=== PATIENT | female | born 1980 | race Caucasian/White ===

== ENCOUNTER 2018-11-24 19:48 | Emergency (ER) | payer SELFPAY ==
[2018-11-24] MEDS ORDERED: Sodium Chloride 0.9% 10 ML Syringe FLUSH PRN (19:52)
[2018-11-24] MEDS ORDERED: Sodium Chloride 0.9% 1,000 ML IV ONE (19:52)
[2018-11-24] MEDS ORDERED: Sodium Chloride 0.9% 2.5 ML Syringe FLUSH PRN (19:52)
[2018-11-24] MEDS ORDERED: Ondansetron 4 MG/2 ML SDV IVPUSH ONE (19:52)
[2018-11-24 20:07] VITALS: BP 149/105
--- NOTE | 2018-11-24 20:13 | EDM.PDOC ---
ED HPI GENERAL MEDICAL PROBLEM - General Stated Complaint: SICK, FELL BACK AND HIT HEAD Time Seen by Provider: 11/24/18 19:49 Source of Information: Reports: Patient History Limitations: Reports: No Limitations - History of Present Illness INITIAL COMMENTS - FREE TEXT/NARRATIVE: HISTORY AND PHYSICAL: History of present illness: Patient is a 38-year-old female who presents to the emergency room after syncopal event. She states she has felt unwell for approximately 2 days with symptoms of cough, nausea, vomiting, diarrhea and general malaise. She states today she did have some dizziness and felt unbalanced on her feet. Prior to arrival she had a syncopal event and fell backwards hitting her head. She reports subjective fevers and chills. Denies any chest pain, shortness of breath , abdominal pain. She states her appetite has been decreased but is able to keep some fluids down. Currently denies any headache, change in vision, diaphoresis. Review of systems: As per history of present illness and below otherwise all systems reviewed and negative. Past medical history: As per history of present illness and as reviewed below otherwise noncontributory. Surgical history: As per history of present illness and as reviewed below otherwise noncontributory. Social history: See social history for further information Family history: As per history of present illness and as reviewed below otherwise noncontributory. Physical exam: General: Well-developed and well-nourished 38-year-old female. Alert and oriented. Nontoxic appearing and in no acute distress HEENT: Nontender with palpation, normocephalic, pupils equal and reactive bilaterally, negative for conjunctival pallor or scleral icterus, mucous membranes moist, TMs normal bilaterally, throat clear, neck supple, nontender, trachea midline. No drooling or trismus noted. No meningeal signs. No hot potato voice noted. Lungs: Clear to auscultation, breath sounds equal bilaterally, chest nontender. Heart: S1S2, regular rate and rhythm without overt murmur Abdomen: Soft, nondistended, nontender. Negative for masses or hepatosplenomegaly. Negative for costovertebral tenderness. Pelvis: Stable nontender. Genitourinary: Deferred. Rectal: Deferred. Skin: Intact, warm, dry. No lesions or rashes noted. Extremities: Moves all extremities per self without difficulty or deficits negative for cords or calf pain. Neurovascular unremarkable. Neuro: Awake, alert, oriented. Cranial nerves II through XII unremarkable. Cerebellum unremarkable. Motor and sensory unremarkable throughout. Exam nonfocal. Notes: After lab work had been drawn and EKG was completed the patient states that she would like to leave. He did not have a chance to perform the head CT or chest x- ray. She'll sign out AGAINST MEDICAL ADVICE. Vital signs are stable. She does have a ride to home. States she'll follow up with her primary care provider tomorrow. Diagnostics: CBC, CMP, orthostatic vital signs, troponin, EKG, head CT, one view chest Therapeutics: IV fluid, Zofran Prescription: None Impression: Syncope Eloped Plan: Eloped Definitive disposition and diagnosis as appropriate pending reevaluation and review of above. Duration: Day(s): head Pain Score (Numeric/FACES): 8 - Related Data Allergies Allergy/AdvReac Type Severity Reaction Status Date / Time No Known Allergies Allergy Verified 11/24/18 20:06 Home Meds: Home Meds Levothyroxine Sodium [Synthroid] 1 tab PO DAILY 08/26/18 [History] Losartan/Hydrochlorothiazide [Losartan-HCTZ 100-25 MG] 1 tab PO DAILY 08/26/18 [ History] Past Medical History - Past Health History Medical/Surgical History: Denies Medical/Surgical History Cardiovascular History: Reports: Hypertension Other Cardiovascular History: just started on BP meds today 03/23/15 Genitourinary History: Reports: None [employer]ER History: Reports: Dysfunctional Uterine Bleeding, Endometriosis Other YOU[employer] OFF[employer]ER History: hx elective AB Endocrine/Metabolic History: Reports: Hypothyroidism, Obesity/BMI 30+ Dermatologic History: Reports: Psoriasis - Past Surgical History Head Surgeries/Procedures: Reports: None Female Surgical History: Reports: Dilitation & Evacuation Other Female Surgeries/Procedures: hysteroscopy ED ROS GENERAL - Review of Systems Review Of Systems: ROS reveals no pertinent complaints other than HPI. - Physical Exam Exam: See Below (See dictation) Course - Vital Signs Last Recorded V/S: Last Vital Signs Temp 97 F 11/24/18 19:48 Pulse 81 11/24/18 19:48 Resp 18 11/24/18 19:48 BP 149/105 H 11/24/18 19:48 Pulse Ox 96 11/24/18 19:48 Orthostatic Blood Pressure [ 129/94 Standing] Orthostatic Blood Pressure [ 134/74 Sitting] Orthostatic Blood Pressure [ 118/76 Supine] - Orders/Labs/Meds Orders: Active Orders 24 hr Category Date Time Status EKG Documentation Completion [RC] STAT Care 11/24/18 19:52 Active Orthostatic Vital Signs [RC] ASDIRECTED Care 11/24/18 19:52 Active Chest 1V Frontal [CR] Stat Exams 11/24/18 19:52 Ordered Head wo Cont [CT] Stat Exams 11/24/18 19:52 Ordered COMPREHENSIVE METABOLIC PN,CMP [CHEM] Stat Lab 11/24/18 20:02 Received CULTURE STOOL + CAMPY+SHIGATOX [RM] Stat Lab 11/24/18 19:53 Ordered INFLUENZA A+B AG SCREEN [RM] Stat Lab 11/24/18 20:11 Received TROPONIN I [CHEM] Stat Lab 11/24/18 20:02 Received UA RFX ANI AND CULT IF INDIC [URIN] Stat Lab 11/24/18 20:15 Received Sodium Chloride 0.9% [Normal Saline] 1,000 ml Med 11/24/18 19:52 Active IV STAT Sodium Chloride 0.9% [Saline Flush] Med 11/24/18 19:52 Active 10 ml FLUSH ASDIRECTED PRN Sodium Chloride 0.9% [Saline Flush] Med 11/24/18 19:52 Active 2.5 ml FLUSH ASDIRECTED PRN Saline Lock Insert [OM.PC] Stat Oth 11/24/18 19:52 Ordered Medication Orders Sodium Chloride (Normal Saline) 1,000 mls @ 999 mls/hr IV STAT ONE Stop: 11/24/18 20:52 Last Admin: 11/24/18 20:09 Dose: 999 mls/hr Sodium Chloride (Saline Flush) 10 ml FLUSH ASDIRECTED PRN PRN Reason: Keep Vein Open Sodium Chloride (Saline Flush) 2.5 ml FLUSH ASDIRECTED PRN PRN Reason: Keep Vein Open Labs: Laboratory Tests 11/24/18 Range/Units 20:02 WBC 4.04 (4.0-11.0) K/uL RBC 4.11 L (4.30-5.90) M/uL Hgb 13.5 (12.0-16.0) g/dL Hct 39.5 (36.0-46.0) % MCV 96.1 (80.0-98.0) fL MCH 32.8 H (27.0-32.0) pg MCHC 34.2 (31.0-37.0) g/dL RDW Std Deviation 52.2 (28.0-62.0) fl RDW Coeff of Cookie 15 (11.0-15.0) % Plt Count 280 (150-400) K/uL MPV 9.40 (7.40-12.00) fL Neut % (Auto) 36.5 L (48.0-80.0) % Lymph % (Auto) 50.2 H (16.0-40.0) % [place] % (Auto) 11.4 (0.0-15.0) % Eos % (Auto) 1.2 (0.0-7.0) % Baso % (Auto) 0.7 (0.0-1.5) % Neut # (Auto) 1.5 (1.4-5.7) K/uL Lymph # (Auto) 2.0 (0.6-2.4) K/uL [place] # (Auto) 0.5 (0.0-0.8) K/uL Eos # (Auto) 0.1 (0.0-0.7) K/uL Baso # (Auto) 0.0 (0.0-0.1) K/uL Nucleated RBC % 0.0 /100WBC Nucleated RBCs # 0 K/uL Meds: Medications Generic Name Dose Route Start Last Admin Trade Name Freq PRN Reason Stop Dose Admin Sodium Chloride 1,000 mls @ 999 mls/hr 11/24/18 19:52 11/24/18 20:09 Normal Saline IV 11/24/18 20:52 999 mls/hr STAT ONE Administration Sodium Chloride 10 ml 11/24/18 19:52 Saline Flush FLUSH ASDIRECTED PRN Keep Vein Open Sodium Chloride 2.5 ml 11/24/18 19:52 Saline Flush FLUSH ASDIRECTED PRN Keep Vein Open Discontinued Medications Generic Name Dose Route Start Last Admin Trade Name Freq PRN Reason Stop Dose Admin Ondansetron HCl 4 mg 11/24/18 19:52 11/24/18 20:22 Zofran IVPUSH 11/24/18 19:53 4 mg ONETIME ONE Administration Departure - Departure Time of Disposition: 20:33 Disposition: Eloped 07 Clinical Impression: Eloped from emergency department Syncope Qualifiers: Syncope type: unspecified Qualified Code(s): R55 - Syncope and collapse - Discharge Information Referrals: PCP,None [Primary Care Provider] - - My Orders Last 24 Hours: My Active Orders 11/24/18 19:52 EKG Documentation Completion [RC] STAT Orthostatic Vital Signs [RC] ASDIRECTED Chest 1V Frontal [CR] Stat Head wo Cont [CT] Stat Sodium Chloride 0.9% [Normal Saline] 1,000 ml IV STAT Sodium Chloride 0.9% [Saline Flush] 10 ml FLUSH ASDIRECTED PRN Sodium Chloride 0.9% [Saline Flush] 2.5 ml FLUSH ASDIRECTED PRN Saline Lock Insert [OM.PC] Stat 11/24/18 19:53 CULTURE STOOL + CAMPY+SHIGATOX [RM] Stat 11/24/18 20:02 COMPREHENSIVE METABOLIC PN,CMP [CHEM] Stat TROPONIN I [CHEM] Stat 11/24/18 20:11 INFLUENZA A+B AG SCREEN [RM] Stat 11/24/18 20:15 UA RFX ANI AND CULT IF INDIC [URIN] Stat - Assessment/Plan Last 24 Hours: My Active Orders 11/24/18 19:52 EKG Documentation Completion [RC] STAT Orthostatic Vital Signs [RC] ASDIRECTED Chest 1V Frontal [CR] Stat Head wo Cont [CT] Stat Sodium Chloride 0.9% [Normal Saline] 1,000 ml IV STAT Sodium Chloride 0.9% [Saline Flush] 10 ml FLUSH ASDIRECTED PRN Sodium Chloride 0.9% [Saline Flush] 2.5 ml FLUSH ASDIRECTED PRN Saline Lock Insert [OM.PC] Stat 11/24/18 19:53 CULTURE STOOL + CAMPY+SHIGATOX [RM] Stat 11/24/18 20:02 COMPREHENSIVE METABOLIC PN,CMP [CHEM] Stat TROPONIN I [CHEM] Stat 11/24/18 20:11 INFLUENZA A+B AG SCREEN [RM] Stat 11/24/18 20:15 UA RFX ANI AND CULT IF INDIC [URIN] Stat
[2018-11-24 20:39] LABS: CHLORIDE,CL 102 mmol/L (98-107); SODIUM,NA 139 mmol/L (136-145)
== END 2018-11-24 20:37 | disposition left against medical advice (07) ==
LOC: MW.ED 19:48
DX: R55 Syncope and collapse (principal); I10 Essential (primary) hypertension; E03.9 Hypothyroidism, unspecified; Z53.21 Procedure and treatment not carried out due to patient leaving prior to being seen by health care provider; Z79.899 Other long term (current) drug therapy
CPT/HCPCS: 36415; 80053; 81003; 84484; 85025; 87804; 93005; 96374; 99284; J2405; J7040